=== PATIENT | female | born 1935 | race Caucasian/White ===

== ENCOUNTER 2017-01-14 13:02 | Observation (INO) | payer OTHER ==
[~2017-01-14] VITALS: Ht 160 cm; Wt 60.0 kg
[~2017-01-14 13:02] MED LIST: ACET325T11 PO; ALBU8I INH; BENA10TA PO; BLADTAB PO; CIPR500T4 PO; FLUT1SPR9; FOSA70TA PO; FURO1TAB93 PO; LEVO75TA3 PO; LORTA5 PO; ONDANSETRON HCL 4 MG/2 ML VIAL IV PUSH ONE; PHENYLEPH/NS 1000 MCG/10 ML SYR IV ONE; PROPOFOL 200 MG/20 ML AMP IV ONE; SIMV40TA PO; SPIRCAP INH; SYMB80AE INH; Z.0.OXYGEN INH; ePHEDrine/NS 25 MG/5 ML SYR IV ONE
[2017-01-14] MEDS ORDERED: CIPROFLOXACIN/DEXT 400 MG/200 ML IV SCH (13:45)
[2017-01-14] MEDS ORDERED: LACTATED RINGER'S 1000 ML IV SCH (13:45)
[2017-01-14] MEDS ORDERED: INSULIN HUMAN REGULAR 1,000 UNITS/10 ML VIAL SQ PRN (13:45)
[2017-01-14] MEDS: SODIUM CHLORID 0.9% 500 ML IV SCH (13:45)
[2017-01-14] MEDS ORDERED: METOPROLOL TARTRATE 25 MG TAB PO PRN (13:45)
[2017-01-14] MEDS ORDERED: FOSA70TA PO (14:06)
[2017-01-14] MEDS ORDERED: ALBUAER3 INH (14:06)
[2017-01-14] MEDS ORDERED: BENA10TA PO (14:06)
[2017-01-14] MEDS ORDERED: SPIRCAP INH (14:06)
[2017-01-14] MEDS ORDERED: LEVO75TA3 PO (14:06)
[2017-01-14] MEDS ORDERED: SIMV40TA PO (14:06)
[2017-01-14] MEDS ORDERED: ACET325T PO (14:06)
[2017-01-14] MEDS ORDERED: FURO1TAB60 PO (14:06)
[2017-01-14] MEDS ORDERED: FLUT1SPR5 EACH NARE (14:06)
[2017-01-14] MEDS ORDERED: SYMB80AE INH (14:06)
[2017-01-14 14:08] VITALS: BP 167/76; PULSE 78; RESP 18; TEMP 98.3; O2SAT 98
[2017-01-14 15:04] LABS: PROTHROMBIN TIME - PATIENT 10.7 SEC (9.8-11.6)
[2017-01-14] MEDS ORDERED: FAMOTIDINE 20 MG/2 ML VIAL ONE (15:18)
[2017-01-14] MEDS ORDERED: SUGAMMADEX SODIUM 200 MG/2 ML VIAL IV PUSH ONE ×2 (15:18)
[2017-01-14] MEDS ORDERED: fentaNYL CITRATE 250 MCG/5 ML AMP ONE (15:18)
[2017-01-14] MEDS ORDERED: APREPITANT 40 MG CAP ONE (15:18)
[2017-01-14] MEDS ORDERED: DO NOT ADM ANY ANTICOAGULANT DRUGS XX PRN (16:20)
[2017-01-14] MEDS ORDERED: BELLADONNA ALKALOIDS/OPIUM 60 MG SUPP ONE (16:31)
[2017-01-14] MEDS ORDERED: *RESP: ALBUTEROL 2.5 MG/3 ML NEB (PRN) PERIprocedural Use ONLY NEB ONE (16:50)
[2017-01-14] MEDS ORDERED: BELLADONNA ALKALOIDS/OPIUM 60 MG SUPP RECTAL ONE (17:15)
[2017-01-14] MEDS ORDERED: RESP: ALBUTEROL 2.5 MG/IPRATROPIUM 0.5 MG NEB (SCH) ONE (17:22)
[2017-01-14] MEDS ORDERED: RESP: ALBUTEROL 2.5 MG/IPRATROPIUM 0.5 MG NEB (SCH) NEB ONE (18:00)
[2017-01-14 20:00] VITALS: BP 100/80; PULSE 85; RESP 19; TEMP 98.1; O2SAT 99
[2017-01-14] MEDS ORDERED: ALBUTEROL SULFATE 90 MCG/ACT HFA 8 GM INHALER INH PRN (20:00)
[2017-01-14] MEDS: FLUTICASONE PROPIONATE 50 MCG/ACT 16 GM NASAL SPRAY NASAL SCH (21:45)
[2017-01-14] MEDS: BUDESONIDE-FORMOTEROL 80/4.5 MCG INHALER INH SCH (21:45)
[2017-01-14] MEDS: RESP: ALBUTEROL 2.5 MG/IPRATROPIUM 0.5 MG NEB (SCH) NEB (22:15)
[2017-01-15] VITALS: BP 144/65; PULSE 75; RESP 21; TEMP 97.3; O2SAT 97
[2017-01-15] MEDS ORDERED: ACETAMINOPHEN/CODEINE 300 MG/30 MG TAB PO PRN ×2 (02:00)
[2017-01-15] MEDS ORDERED: LEVOTHYROXINE SODIUM 75 MCG TAB PO SCH (06:00)
[2017-01-15] MEDS: SODIUM CHLORID 0.9% 500 ML IV SCH (06:25)
[2017-01-15 07:44] VITALS: O2SAT 98
[2017-01-15] MEDS: RESP: ALBUTEROL 2.5 MG/IPRATROPIUM 0.5 MG NEB (SCH) NEB ×2 (07:44→11:02)
[2017-01-15 08:00] VITALS: BP 122/63; PULSE 52; RESP 18; TEMP 96.7; O2SAT 96
[2017-01-15] MEDS: BUDESONIDE-FORMOTEROL 80/4.5 MCG INHALER INH SCH (08:45)
[2017-01-15] MEDS: FLUTICASONE PROPIONATE 50 MCG/ACT 16 GM NASAL SPRAY NASAL SCH (08:45)
[2017-01-15] MEDS ORDERED: PRAVASTATIN SOD 80 MG TAB PO SCH (09:00)
[2017-01-15] MEDS ORDERED: DOCUSATE SODIUM 100 MG CAP PO SCH (09:00)
[2017-01-15] MEDS ORDERED: LISINOPRIL 10 MG TAB PO SCH (09:00)
[2017-01-15] MEDS ORDERED: FUROSEMIDE 40 MG TAB PO SCH (09:00)
[2017-01-15] MEDS ORDERED: TIOTROPIUM BROMIDE 18 MCG INH INH SCH (09:00)
[2017-01-15 12:00] VITALS: BP 146/66; PULSE 76; RESP 16; TEMP 96.3; O2SAT 95
--- NOTE | 2017-01-15 13:09 | HHI.DS ---
Discharge Summary Admission Date Jan 14, 2017 at 17:30 Discharge Date: Jan 15, 2017 Admitting Diagnosis Bladder Cancer, severe COPD Procedures cystoscopy, bladder fulgeration Hospital Course 81 yo female h/o bladder cancer admitted for observation following a bladder fulgeration due to her severe COPD. Overnight, she did very well. Her breathing improved. She did not have any pain. She was able to void on her own. D/C home POD #1. Discharge Disposition: Discharge Home Discharge Instructions DIET: Follow Instructions for: Heart Healthy Diet Activities you can perform: Full Weight Bearing Continued Medications: Acetaminophen (Acetaminophen) 325 Mg Tab 650 MG PO Q4-6H PRN PAIN 1 TO 10 AND/OR AGITATION Ref 0 TAB Albuterol 8.5 GM Inh (Proair Hfa 8.5 GM Inh) 90 Mcg/Act Aer 2 PUFF INH Q4H 108 mcg/actuation PRN SHORTNESS OF BREATH #1 Ref 0 INHALER Alendronate (Fosamax) 70 Mg Tab 70 MG PO Q7D Osteoporosis Treatment #4 Ref 0 TAB Benazepril (Benazepril) 10 Mg Tab 10 MG PO DAILY Blood Pressure Management #30 Ref 0 TAB Budesonide-Formoterol Inh (Symbicort Inh) 80-4.5 Mcg/Act Aero 2 PUFF INH Q12HR Asthma Management #1 Ref 0 INHALER Fluticasone Nasal [place] (Flonase Allergy Relief Nasal [place]) 50 Mcg/Act [place] 50 MCG EACH NARE BID Allergies #1 Ref 0 BOTTLE Furosemide (Lasix) 40 Mg Tab 40 MG PO DAILY #30 Ref 0 TAB Levothyroxine (Levothyroxine) 75 Mcg Tab 75 MCG PO DAILY Thyroid #30 Ref 0 TAB Simvastatin (Simvastatin) 40 Mg Tab 40 MG PO DAILY Cholesterol Management #30 Ref 0 TAB Tiotropium Inh (Spiriva Handihaler) 18 Mcg Cap 18 MCG INH DAILY 1 capsule = 18 mcg COPD #30 Ref 0 CAP Ryan Sanchez MD Jan 15, 2017 13:09
[2017-01-17] MEDS ORDERED: ALENDRONATE SODIUM 70 MG TAB PO SCH (09:00)
--- NOTE | 2017-02-03 08:27 | MP ---
cc: RYAN MANUEL MD DATE OF SURGERY 01/14/2017 PREOPERATIVE DIAGNOSIS History of high-grade T1 bladder cancer. POSTOPERATIVE DIAGNOSIS History of high-grade T1 bladder cancer. PROCEDURE PERFORMED 1. Cystourethroscopy 2. Bladder fulguration of lesion less than 0.5 cm SURGEON Ryan Manuel MD ANESTHESIA General COMPLICATIONS None PREOPERATIVE ANTIBIOTICS Ancef one gram IV DRAINS A 20-Sinhala Whitfield catheter to gravity drainage. SPECIMEN None BLOOD LOSS Minimal DISPOSITION Stable to recovery INDICATIONS The patient is an 81-year-old female with a history of high-grade T1 bladder cancer who underwent recent local cystoscopy. During her surveillance cystoscopy, she was found to have a small bladder lesion. This was subsequently biopsied and came back high-grade T1. Treatment was discussed. She has elected to proceed with transurethral resection of her bladder tumor. Due to her significant lung disease, it was then set up to be done as an outpatient in the hospital setting. The risks, benefits and alternative explained. The patient wished to proceed and informed consent was obtained. DETAILS OF THE PROCEDURE The patient was identified, brought back to the cystoscopy suite and she was laid supine on the cystoscopy table. Appropriate time-out was performed under the direction of anesthesiology. The patient was induced under general aesthetic. Preoperative antibiotics in the form of Ancef one gram IV was given one hours of the start of the procedure. The patient then placed in the dorsolithotomy position, prepped, draped in the normal sterile surgical fashion. A 25-Sinhala sheath with obturator was then carefully passed into her bladder per urethra without any difficulty. The obturator was removed and we then passed the monopolar resectoscope into her bladder. Her bladder was carefully examined. There appeared to be a very small papillary like lesion on the left right lateral wall of her bladder. This was successfully fulgurated with a Bugbee electrode. The rest of her bladder appeared to be completely normal. Both ureteral orifices were identified and appeared to be patent. No other tumors were visualize and her bladder mucosa appeared to be normal as well. Therefore her bladder was then drained. A catheter was then inserted. This concluded the procedure. The patient was extubated and sent to recovery in stable condition. She will be discharged home per PACU protocol if her lungs permit. She will then follow up next week for a void trial. MD RUTHIE Alan/NICKOLAS /12:55 PM /8:10 AM
== END 2017-01-15 15:09 | disposition home or self-care (01) ==
LOC: HSDC 13:02 → N07B 17:30
PROVIDERS: ADMIT Urology; ATTEND Urology
DX: C67.9 Malignant neoplasm of bladder, unspecified (principal); J44.9 Chronic obstructive pulmonary disease, unspecified
CPT/HCPCS: 00910; 52224; 85610; 94640; 94664; G0378; J0744; J2370; J2405; J3010; J7120; J7613; J8501

== ENCOUNTER → 2018-05-05 | Outpatient (CLI) | payer OTHER ==
[~2018-05-05] MED LIST changes: +ACET325T PO; -ACET325T11 PO; -ALBU8I INH; +ALBUAER3 INH; -BLADTAB PO; -CIPR500T4 PO; +FLUT1SPR5 EACH NARE; -FLUT1SPR9; +FURO1TAB60 PO; -FURO1TAB93 PO; -LORTA5 PO; -ONDANSETRON HCL 4 MG/2 ML VIAL IV PUSH ONE; -PHENYLEPH/NS 1000 MCG/10 ML SYR IV ONE; -PROPOFOL 200 MG/20 ML AMP IV ONE; -Z.0.OXYGEN INH; -ePHEDrine/NS 25 MG/5 ML SYR IV ONE
== END ==
LOC: HRSP 09:53
PROVIDERS: ATTEND Internal Medicine Pulmonary Disease
DX: J44.9 Chronic obstructive pulmonary disease, unspecified (principal)
CPT/HCPCS: 94060